=== PATIENT | female | born 1975 | race Caucasian/White ===

== ENCOUNTER → 2020-09-28 | Outpatient (REF) | payer BC | LOC: M LAB REF 18:26 | PROVIDERS: ATTEND Physician Assistant | DX: L82.0 Inflamed seborrheic keratosis (principal) ==

== ENCOUNTER → 2023-12-09 | Outpatient (REF) | payer BC | LOC: M SFHCDERM 17:39 | PROVIDERS: ATTEND Physician Assistant | DX: D36.7 Benign neoplasm of other specified sites (principal) ==

== ENCOUNTER → 2024-01-07 | Outpatient (REF) | payer BC | LOC: M SFHCDERM 17:44 | PROVIDERS: ATTEND Physician Assistant | DX: D23.9 Other benign neoplasm of skin, unspecified (principal) ==

== ENCOUNTER 2024-02-24 08:03 | Day surgery (SDC) | payer BC ==
[~2024-02-24] VITALS: Ht 167.6 cm; Wt 52.6 kg
[~2024-02-24 08:03] MED LIST: CEFU1TAB22 PO; LEVO88TA24 PO; MAGN400C PO; PROBCAP2 PO; SERT50TA29 PO
[2024-02-24] MEDS ORDERED: propofoL 200 MG/20 ML VIAL As Ordered ONE (09:31)
[2024-02-24] MEDS ORDERED: LIDOCAINE 2% 100MG/5ML SDV (FOR ANES.) As Ordered ONE (09:31)
[2024-02-24] MEDS ORDERED: KETOROLAC 60MG 2ML VIAL As Ordered ONE (09:31)
[2024-02-24] MEDS ORDERED: ONDANSETRON 4MG 2ML VIAL As Ordered ONE (09:31)
[2024-02-24] MEDS ORDERED: MIDAZOLAM INJ 2MG/2ML VIAL As Ordered ONE (09:32)
[2024-02-24] MEDS ORDERED: fentaNYL 100 MCG/2 ML INJECTION As Ordered ONE (09:32)
[2024-02-24] MEDS ORDERED: dexmedeTOMIDine (4MCG/ML)200MCG/50ML BTL (PRECEDEX) As Ordered ONE (09:38)
[2024-02-24] MEDS: ceFAZolin 2 GM/D5W 50 ML IV BAG As Ordered ONE (11:14)
[2024-02-24] MEDS: BACITRACIN OINTMENT 30GM TUBE As Ordered ONE (11:45)
[2024-02-24 12:20] VITALS: BP 109/69; TEMP 97.6; O2SAT 100
== END 2024-02-24 12:35 | disposition home or self-care (01) ==
LOC: M SDC 08:03
PROVIDERS: ATTEND Orthopaedic Surgery Hand Surgery
DX: D23.61 Other benign neoplasm of skin of right upper limb, including shoulder (principal); E06.3 Autoimmune thyroiditis; A69.20 Lyme disease, unspecified; Z79.890 Hormone replacement therapy; Z79.899 Other long term (current) drug therapy; Z87.19 Personal history of other diseases of the digestive system
CPT/HCPCS: 11421; 88305; J0665; J0690; J1100; J1885; J2250; J2405; J3010